=== PATIENT | female | born 1985 | race Caucasian/White ===

== ENCOUNTER 2017-02-17 09:31 | Emergency (ER) | payer MEDICAID ==
[~2017-02-17] VITALS: Ht 149.9 cm; Wt 67.0 kg
[~2017-02-17 09:31] MED LIST: TYLE3 PO
[2017-02-17 09:32] VITALS: BP 124/74; PULSE 94; RESP 18; TEMP 98.7; O2SAT 98
[2017-02-17 10:05] LABS: BACTERIA, URINE RARE /hpf; BILIRUBIN, URINE NEG (NEG); BLOOD, URINE NEG (NEG); GLUCOSE,URINE NEG (NEG); KETONE, URINE NEG (NEG); NITRITE,URINE NEG (NEG); PH, URINE 6.5 (5.0-8.5); URINE COLOR COLORLESS (YELLW/STRAW); URINE LEUKOCYTE ESTERASE NEG (NEG)
--- NOTE | 2017-02-17 10:50 | PD ---
HPI . related concern Chief Complaint: Related Problem Time Seen by Provider: 09:42 Travel History International Travel<30 days: No Contact w/Intl Traveler<30days: No Traveled to known affect area: No History of Present Illness HPI 31 yo presents to ED with complaints of pinkish discoloration on the toilet paper after her morning pee. The bleeding was very mild. She is concerned as she has a history of 3 miscarriages in the past. She reports she is 12 weeks by LMP 12/02/2016 and has not yet established with an OBGYN. She has not noticed any additional blood or pinking discoloration since but does have mild abdominal cramps 5-10 mins apart. Last intercourse was 2 days ago. She denies any urinary frequency, urgency or abnormal discharge. [facility] Past Medical History Medical History: Denies Significant Hx Diminished Hearing: No ?: : 5 Para: 2 Miscarriage: 3 : 1 Past Surgical History Surgical History: No Previous Surgery Social History Alcohol Use: No Tobacco Use: No Substance Use: No Allergies-Medications (Allergen,Severity, Reaction): Coded Allergies: No Known Allergies (Verified Adverse Reaction, Unknown, 02/17/17) Reported Meds & Prescriptions Reported Meds & Active Scripts Active No Active Prescriptions or Reported Medications Review of Systems Except as stated in HPI: all other systems reviewed are Neg Gastrointestinal: Positive: Nausea, Abdominal Pain Genitourinary: Positive: Vaginal Bleeding, No: Urgency, Frequency, Dysuria, Discharge Physical Exam Narrative General: young female laying in bed, in no sign of acute distress Skin: warm and dry with good color. : External genitalia pink and moist. Cervical os is visualized. There are no signs of blood or cervical discharge.There is no cervical motion tenderness. Abdomen: mildly distended abdomen consistent with early gestation. No tenderness to palpation Cardiac: Regular rate and rhythm. No rubs, murmurs or gallops Lungs: Clear to auscultation bilaterally. No wheezes, rales, rhonchi Musculoskeletal: able to move all extremities Psych: normal mood and affect Data Data Last Documented VS Vital Signs Date Time Temp Pulse Resp B/P (MAP) Pulse Ox O2 Delivery O2 Flow Rate FiO2 02/17/17 09:32 98.7 94 18 124/74 (91) 98 Room Air Orders Orders Beta Hcg (Quant/Titer) (02/17/17 09:43) Gc And Chlamydia Pcr (02/17/17 09:43) Wet Prep Profile (02/17/17 09:43) Urinalysis - C+S If Indicated (02/17/17 09:43) Ed Urine Pregnancytest Poc (02/17/17 09:43) Ed Poc Ultrasound (02/17/17 09:43) Us Pelvis (Ques Pr/Ect)W Trans (02/17/17 10:26) Labs Laboratory Tests Test 02/17/17 09:56 02/17/17 09:57 02/17/17 10:22 Urine Color COLORLESS Urine Turbidity CLEAR Urine pH 6.5 Urine Specific [place] 1.001 Urine Protein NEG mg/dL Urine Glucose (UA) NEG mg/dL Urine Ketones NEG mg/dL Urine Occult Blood NEG Urine Nitrite NEG Urine Bilirubin NEG Urine Urobilinogen LESS THAN 2.0 MG/DL Urine Leukocyte Esterase NEG Urine WBC LESS THAN 1 /hpf Urine Bacteria RARE /hpf Microscopic Urinalysis Comment CULT NOT INDICATED Human Chorionic Gonadotropin, Quant 3708 MIU/ML Clue Cells (Wet Prep) NONE SEEN Vaginal Trichomonas (Wet Prep) NONE SEEN Vaginal Yeast (Wet Prep) NONE SEEN MDM Medical Decision Making Medical Screen Exam Complete: Yes Emergency Medical Condition: Yes Differential Diagnosis ectopic , spontaneous , spotting, urinary tract infection, foreign body, vaginal trauma Narrative Course Patient presented with concerns of pinkish discharge after urinating this am with reported 12 week and history of 3 previous miscarriages. Urine test was positive. BHCG was 3700. POC ultrasound suggested possible early gestation but no definitive fetus was seen. Pelvic exam demonstrated no active cervical bleeding or discharge but was mildly tender in upper pelvis. Urinalysis is negative. Wet prep is negative. Official ultrasound demonstrated a fetus of estimated 7 weeks 2 days gestation with no heart tones suggesting intrauterine demise. The patient was informed of the IFD. Gonorrhea/Chlamydia is pending. Procedures Procedure Narrative Emergency Department Pelvic ultrasound was performed with patient consent. The curvilinear probe was used in the transverse and sagittal views within the suprapubic region revealing a thickened endometrial stripe. No fetus was seen. Diagnosis Primary Impression: Bleeding in early Additional Impression: Intrauterine before 20 weeks of gestation Referrals: [facility] [place] [employer] [employer] [facility] [facility] [employer] [employer] [facility] Patient Instructions: General Instructions, Intrauterine Demise (ED) Scripts No Active Prescriptions or Reported Meds Disposition: 01 DISCHARGE HOME Condition: Stable Leigh Savage MD Feb 17, 2017 10:50
--- NOTE | 2017-02-17 12:04 | RADRPT ---
EXAM DATE/TIME: 02/17/2017 11:18 [place] COMPARISON: US PELVIS (QUEST PREG/ECTOPIC) W/TRANSVAG, February 22, 2014, 8:05. INDICATIONS : Pelvic pain and bleeding. LAB(S): Beta-hC MEDICAL HISTORY : . SURGICAL HISTORY : None. ENCOUNTER: Initial ACUITY: 1 day PAIN SCORE: 8/10 LOCATION: Bilateral pelvis MEASUREMENTS: UTERUS: 7.9 x 7.3 x 5.5 cm ENDOMETRIAL STRIPE: >20 mm RIGHT OVARY: 2.5 x 1.8 x 2.2 cm LEFT OVARY: 2.7 x 2.7 x 3.2 cm FREE FLUID: No CROWN RUMP LENGTH: 2.1 cm = 8 WKS 5 DAYS FHR: Nonvisualized BPM FINDINGS: Intrauterine is identified with a crown-rump length corresponding to a 7 week 2 day gestati on but no heart rate identified. The findings are compatible with demise in utero. No swapnil e fluid is identified. The right ovary appears normal. A 2 cm left ovarian cyst is present. CONCLUSION: 1. Findings of demise in utero. Karthik Louie MD on February 17, 2017 at 11:59 Board Certified Radiologist. This report was verified electronically.
== END 2017-02-17 13:24 | disposition home or self-care (01) ==
LOC: NEPD 09:31
DX: O02.1 Missed abortion (principal); Z3A.01 Less than 8 weeks gestation of pregnancy
CPT/HCPCS: 76700; 76817; 81001; 84702; 84703; 87210; 87491; 87591; 99284